=== PATIENT | male | born 1965 | race Caucasian/White ===

== ENCOUNTER 2017-12-09 10:44 | Inpatient (IN) | payer OTHER ==
[2017-12-09 11:29] VITALS: BMI 22.7
--- NOTE | 2017-12-09 12:16 | HP ---
COWS - Scale Resting Pulse: 0= [place] 80 or Below Sweatin= Chills/Flushing Restless Observation: 1= Difficult to Sit Still Pupil Size: 1= Pupils >than Normal Bone or Joint Aches: 2= Severe Diffuse Aches Runny Nose/ Eye Tearin= Nasal Congestion GI Upset > 30mins: 1= Stomach Cramp Tremor Observation: 2= Slight Tremor Visible Yawning Observation: 1= 1-2x During Session Anxiety or Irritability: 2=Irritable/Anxious Goose Flesh Skin: 0=Smooth Skin COWS Score: 12 CIWA Score - CIWA Score Nausea/Vomitin-Mild Nausea/No Vomiting Muscle Tremors: 3 Anxiety: 4-Mod. Anxious/Guarded Agitation: 1-Slight > Activity Paroxysmal Sweats: 2 Orientation: 0-Oriented Tacttile Disturbances: 3-Moderate Itch/Numb/Burn Auditory Disturbances: 0-None Visual Disturbances: 0-None Headache: 0-None Present CIWA-Ar Total Score: 14 Admission [facility] - HPI Chief Complaint: Heroin/BZO withdrawal symptoms. Allergies/Adverse Reactions: Allergies Allergy/AdvReac Type Severity Reaction Status Date / Time No Known Allergies Allergy Verified 12/09/17 11:52 History of Present Illness: Patient presents with Heroin and BZO withdrawal symptoms. Patient injects 10 bags of heroin daily, since age 25. Last time used this morning. Patient also takes 2mg of non-prescribed xanax daily, x few months, last time he took medication was today. Patient denies hx of overdose, seizures and blackouts. This is patients first attempt at detox here at [facility]. Previous detox years ago. Longest of period of sobriety one year. PMH includes HIV+, depression and anxiety. Denies SI/HI and suicide attempts. Exam Limitations: No Limitations - Ebola screening Have you traveled outside of the country in the last 21 days: No Have you had contact with anyone from an Ebola affected area: No Have you been sick,other than usual withdrawal symptoms: No Do you have a fever: No - Review of Systems Constitutional: Chills, Night Sweats, Changes in sleep, Unexplained wgt Loss EENT: reports: Nose Congestion Respiratory: reports: No Symptoms reported Cardiac: reports: No Symptoms Reported GI: reports: Nausea, Poor Appetite, Poor Fluid Intake, Abdominal cramping : reports: No Symptoms Reported Musculoskeletal: reports: Back Pain, Muscle Pain Integumentary: reports: Sweating Neuro: reports: Numbness, Tingling, Tremors Endocrine: reports: Unexplained Weight Loss Hematology: reports: No Symptoms Reported Psychiatric: reports: Orientated x3, Anxious, Depressed Patient History - Patient Medical History Hx Anemia: No Hx Asthma: No Hx Chronic Obstructive Pulmonary Disease (COPD): No Hx Cancer: No Hx Cardiac Disorders: No Hx Congestive Heart Failure: No Hx Hypertension: No Hx Hypercholesterolemia: No Hx Pacemaker: No HX Cerebrovascular Accident: No Hx Seizures: No Hx Dementia: No Hx Diabetes: No Hx Gastrointestinal Disorders: No Hx Liver Disease: No Hx Genitourinary Disorders: No Hx Sexually Transmitted Disorders: No Hx Renal Disease (ESRD): No Hx Thyroid Disease: No Hx Human Immunodeficiency Virus (HIV): Yes (diagnosed in 1981, compliant with all meds) Hx Hepatitis C: No Hx Depression: Yes Hx Suicide Attempt: No Hx Bipolar Disorder: No Hx Schizophrenia: No - Patient Surgical History Past Surgical History: Yes Hx Neurologic Surgery: No Hx Cataract Extraction: No Hx Cardiac Surgery: No Hx Lung Surgery: No Hx Breast Surgery: No Hx Breast Biopsy: No Hx Abdominal Surgery: No Hx Appendectomy: No Hx Cholecystectomy: No Hx Genitourinary Surgery: No Hx Orthopedic Surgery: Yes (torn meniscus, left knee) Anesthesia Reaction: No - PPD History Previous Implant?: Yes Documented Results: Negative w/o proof Implanted On Prior [facility] Admission?: No PPD to be Administered?: Yes - Smoking Cessation Smoking history: Current every day smoker Have you smoked in the past 12 months: Yes Aproximately how many cigarettes per day: 10 Hx Chewing Tobacco Use: No Initiated information on smoking cessation: Yes 'Breaking Loose' booklet given: 12/09/17 - Substance & Tx. History Hx Alcohol Use: No Hx Substance Use: Yes Substance Use Type: Cocaine, Heroin, Marijuana, Tranquilizers Hx Substance Use Treatment: Yes - Substances Abused Heroin Route: Injection Frequency: Daily Amount used: 10-12 bags Age of first use: 25 Date of Last Use: 12/09/17 Crack Route: Smoking Frequency: 3-6 times per week Amount used: $100 Age of first use: 23 Date of Last Use: 12/08/17 Xanax Route: Oral Frequency: Daily Amount used: 2 mg. Age of first use: 52 Date of Last Use: 12/08/17 Marijuana Frequency: 3-6 times per week Amount used: $20 Age of first use: 7 Date of Last Use: 12/08/17 Family Disease History - Family Disease History Family Disease History: Other: Mother (cirrhosis of liver, ) Admission Physical Exam [facility] - Vital Signs Vital Signs: Vital Signs - 24 hr 12/09/17 11:22 Temperature 98.5 F Pulse Rate 62 Respiratory 17 Rate Blood Pressure 123/73 - Physical General Appearance: Yes: No Apparent Distress, Appropriately Dressed, Thin, Sweating, Anxious HEENTM: Yes: EOMI, Hearing grossly Normal, Normocephalic, Normal Voice, BRANDY, Pharynx Normal, Tm's normal, Nasal Congestion Respiratory: Yes: Chest Non-Tender, Lungs Clear, Normal Breath Sounds, No Respiratory Distress, No Accessory Muscle Use Neck: Yes: No masses,lesions,Nodules, Supple Breast: Yes: Breast Exam Deferred Cardiology: Yes: Regular Rhythm, Regular Rate, S1, S2 Abdominal: Yes: Normal Bowel Sounds, Non Tender, Soft Genitourinary: Yes: Within Normal Limits Back: Yes: Normal Inspection, Muscle Spasm Musculoskeletal: Yes: full range of Motion, Gait Steady, Back pain, Muscle Pain Extremities: Yes: Normal Inspection, Normal Range of Motion, Non-Tender, Tremors Neurological: Yes: hand etcher helper II-XII NML intact, Fully Oriented, Alert, Motor Strength 5/5, Normal Response, Depressed Affect Integumentary: Yes: Normal Color, Warm, Moist, Track [place] Lymphatic: Yes: Within Normal Limits - Diagnostic (1) Opioid dependence with withdrawal Current Visit: Yes Status: Acute (2) Depressed affect Current Visit: Yes Status: Suspected (3) HIV positive Current Visit: Yes Status: Acute (4) Sedative hypnotic or anxiolytic dependence Current Visit: Yes Status: Acute Cleared for Admission [facility] - Detox or Rehab [facility] Level of Care: Medically Managed Detox Regimen/Protocol: Methadone/Valium [facility] Breath Alcohol Content Breath Alcohol Content: 0 Urine Drug Screen - Results Drug Screen Negative: No Urine Drug Screen Results: THC-Marijuana, DONNIE-Cocaine, OPI-Opiates, BZO- Benzodiazepines, OXY-Oxycodone, FEN-Fentanyl
[2017-12-09] MEDS ORDERED: NICOTINE POLACRILEX 2 MG GUM BUC PRN (12:28)
[2017-12-09] MEDS ORDERED: LOPERAMIDE HCL 2 MG CAPSULE PO PRN (12:28)
[2017-12-09] MEDS ORDERED: MAGNESIUM CITRATE 300 ML BOTTLE PO PRN (12:28)
[2017-12-09] MEDS ORDERED: MENTHOL/PHENOL 1 EACH UD MM PRN (12:28)
[2017-12-09] MEDS ORDERED: P-EPHED 60MG/TRIPROLIDI 2.5MG TABLET PO PRN (12:28)
[2017-12-09] MEDS ORDERED: MAGNESIUM HYDROX 2400MG/30ML ORAL SUSPENSION 30 ML CUP PO PRN (12:28)
[2017-12-09] MEDS ORDERED: IBUPROFEN 400 MG TABLET (FP) PO PRN (12:28)
[2017-12-09] MEDS ORDERED: guaiFENesin/D-METHORPHAN HB 10 ML UNIT-DOSE CUPS PO PRN (12:28)
[2017-12-09] MEDS ORDERED: hydrOXYzine PAMOATE 25 MG CAPSULE (FP) PO PRN (12:28)
[2017-12-09] MEDS ORDERED: MAG HYDROX/AL HYDROX/SIMETH 30 ML UNIT-DOSE CUP PO PRN (12:28)
[2017-12-09] MEDS ORDERED: ACETAMINOPHEN 325 MG TABLET (FP) PO PRN (12:28)
[2017-12-09] MEDS ORDERED: diazePAM 5 MG TABLET PO PRN (12:32)
[2017-12-09 14:50] LABS: HEMATOCRIT 44.2 % (35.4-49); HEMOGLOBIN 14.8 GM/dL (11.7-16.9); MCH 29.2 pg (25.7-33.7); MCHC 33.4 g/dl (32.0-35.9); MEAN CELL VOLUME 87.4 fl (80-96); MEAN PLT VOLUME 8.6 fl (7.5-11.1); PLATELET COUNT 220 K/MM3 (134-434); RBC 5.06 M/mm3 (4.00-5.60); RDW 14.7 % (11.9-15.9); WHITE BLOOD COUNT 7.9 K/mm3 (4.0-10.0)
[2017-12-09 14:54] LABS: ALBUMIN 3.5 g/dl (3.4-5.0); ALK PHOS 95 U/L (45-117); ANION GAP 3 MMOL/L (8-16); BILIRUBIN,TOTAL 0.3 mg/dL (0.2-1); BLOOD UREA NITROGEN 10 mg/dL (7-18); CHLORIDE 105 mmol/L (98-107); CO2 28 mmol/L (21-32); CREATININE 1.1 mg/dL (0.55-1.3); GLUCOSE,RANDOM 84 mg/dL (74-106); POTASSIUM 4.3 mmol/L (3.5-5.1); SGOT/AST 40 U/L (15-37); SGPT/ALT 30 U/L (13-61); SODIUM 136 mmol/L (136-145); TOT PROT 8.1 g/dl (6.4-8.2)
[2017-12-09] MEDS ORDERED: METHADONE HCL 10 MG TABLET (FOR DETOX USE ONLY) PO ONE ×2 (15:15→23:00)
[2017-12-09] MEDS: diazePAM 5 MG TABLET PO SCH ×2 (15:19→22:17)
[2017-12-09 17:18] LABS: URINE APPEARANCE CLEAR; URINE BILIRUBIN NEGATIVE (<2.0 mg/dL); URINE COLOR LTYELLOW; URINE GLUCOSE (UA) NEGATIVE (NEGATIVE); URINE KETONE NEGATIVE (NEGATIVE); URINE LEUK ESTERASE NEGATIVE (NEGATIVE); URINE NITRITE NEGATIVE (NEGATIVE); URINE PROTEIN NEGATIVE (NEGATIVE); URINE UROBILINOGEN NEGATIVE mg/dL (0.2-1.0)
[2017-12-09] MEDS: THIAMINE HCL 100 MG TABLET (FP) PO SCH (22:17)
[2017-12-09] MEDS: MELATONIN 5 MG TABLETS PO PRN (22:18)
[2017-12-10] MEDS: diazePAM 5 MG TABLET PO SCH ×3 (06:54→22:07)
[2017-12-10] MEDS ORDERED: EMTRICITABINE 200MG/TENOFOVIR 300MG PO SCH (08:00)
[2017-12-10] MEDS ORDERED: RITONAVIR 100 MG TABLET PO SCH (08:00)
[2017-12-10] MEDS ORDERED: DARUNAVIR ETHANOLATE 800 MG TAB PO SCH (08:00)
[2017-12-10] MEDS ORDERED: METHADONE HCL 10 MG TABLET (FOR DETOX USE ONLY) PO SCH (10:00)
[2017-12-10] MEDS: PRENATAL VITAMINS W/ FOLIC ACID TABLET (FP) PO SCH (10:58)
[2017-12-10] MEDS: NICOTINE 21 MG/24 HOURS TOPICAL PATCH TD SCH (10:58)
--- NOTE | 2017-12-10 11:29 | CONSULT ---
[facility] Psychiatric Consult - Data Date of interview: 12/10/17 Admission source: [facility] Identifying data: Patient is a 52 year old male, , without children, unemployed, domiciled, and is supported by [facility]. This is patient's first admission to detox at [facility]. Patient admitted to for cocaine, opiate, and benzodiazepine dependence. Substance Abuse History: Smoking Cessation. Smoking history: Current every day smoker. Have you smoked in the past 12 months: Yes. Aproximately how many cigarettes per day: 10. Hx Chewing Tobacco Use: No. Initiated information on smoking cessation: Yes. 'Breaking Loose' booklet given: 12/09/17. - Substance & Tx. History. Hx Alcohol Use: No. Hx Substance Use: Yes. Substance Use Type : Cocaine, Heroin, Marijuana, Tranquilizers. Hx Substance Use Treatment: Yes. - Substances Abused. Heroin. Route: Injection. Frequency: Daily. Amount used: 10-12 bags. Age of first use: 25. Date of Last Use: 12/09/17. Crack. Route: Smoking. Frequency: 3-6 times per week. Amount used: $100. Age of first use: 23. Date of Last Use: 12/08/17. Xanax. Route: Oral. Frequency: Daily. Amount used: 2 mg. Age of first use: 52. Date of Last Use: 12/08/17. Marijuana. Frequency: 3-6 times per week. Amount used: $20. Age of first use: 7. Date of Last Use: 12/08/17 Medical History: torn meniscus, left knee, HIV Psychiatric History: Patient reports two psychiatric hospitalizations for depression which occured over ten years ago at [place] and another facility in [facility]. Patient denies h/o outpatient psychiatric care. He currently see's a therapist at [facility]. He is not prescribed psychotrophic medications. Patient denies h/o suicide attempt. Physical/Sexual Abuse/Trauma History: denies. Mental Status Exam - Mental Status Exam Alert and Oriented to: Time, Place, Person Cognitive Function: Good Patient Appearance: Unkempt Mood: Withdrawn Affect: Mood Congruent Patient Behavior: Fatigued, Cooperative Speech Pattern: Appropriate Voice Loudness: Moderately Soft/Quiet Thought Process: Intact, Goal Oriented Thought Disorder: Not Present Hallucinations: Denies Suicidal Ideation: Denies Homicidal Ideation: Denies Insight/Judgement: Poor Sleep: Fair Appetite: Fair Muscle strength/Tone: Normal Gait/Station: Other (Did not observe patient's gait.) Psychiatric Findings - Problem List ([place] 1, 2,3) (1) Substance induced mood disorder Current Visit: Yes Status: Acute (2) Opioid dependence with withdrawal Current Visit: Yes Status: Acute (3) Sedative hypnotic or anxiolytic dependence Current Visit: Yes Status: Acute - Initial Treatment Plan Initial Treatment Plan: Psychoeducation provided. Detoxification in progress. Observation.
--- NOTE | 2017-12-10 12:13 | EKG ---
Test Reason : Blood Pressure : / mmHG Vent. Rate : 059 BPM Atrial Rate : 059 BPM P-R Int : 132 ms QRS Dur : 110 ms QT Int : 414 ms P-R-T Axes : 049 010 045 degrees QTc Int : 409 ms SINUS BRADYCARDIA OTHERWISE NORMAL ECG NO PREVIOUS ECGS AVAILABLE Confirmed by STANFORD GARCIA MD ([id number]) on 12/10/2017 12:13:27 PM Referred By: Confirmed By:STANFORD GARCIA MD
--- NOTE | 2017-12-10 13:18 | PN ---
[facility] CIWA - CIWA Score Nausea/Vomitin Muscle Tremors: 4-Moderate,w/Arms Extend Anxiety: 4-Mod. Anxious/Guarded Agitation: 4-Moderately Restless Paroxysmal Sweats: 3 Orientation: 0-Oriented Tacttile Disturbances: 0-None Auditory Disturbances: 0-None Visual Disturbances: 0-None Headache: 0-None Present CIWA-Ar Total Score: 17 [facility] COWS - Scale Resting Pulse: 1= [place] 81-100 Sweatin= Chills/Flushing Restless Observation: 3= Extraneous Movement Pupil Size: 0= Normal to Room Light Bone or Joint Aches: 2= Severe Diffuse Aches Runny Nose/ Eye Tearin= Runny Nose/Eyes GI Upset > 30mins: 2= Nausea/Diarrhea Tremor Observation of Outstretched Hands: 2= Slight Tremor Visible Yawning Observation: 0= None Anxiety or Irritability: 2=Irritable/Anxious Goose Flesh Skin: 0=Smooth Skin COWS Score: 15 S Progress Note (SOAP) Subjective: Body ache, headache, diarrhea, agitated Objective: 12/10/17 13:27 Last Vital Signs Temp Pulse Resp BP Pulse Ox 98.3 F 100 H 16 121/83 12/10/17 13:07 12/10/17 13:07 12/10/17 13:07 12/10/17 13:07 Laboratory Tests 12/09/17 12/09/17 12/09/17 13:10 13:10 13:10 WBC 7.9 RBC 5.06 Hgb 14.8 Hct 44.2 MCV 87.4 MCH 29.2 MCHC 33.4 RDW 14.7 Plt Count 220 MPV 8.6 Sodium 136 Potassium 4.3 Chloride 105 Carbon Dioxide 28 Anion Gap 3 L BUN 10 Creatinine 1.1 Creat Clearance w eGFR > 60 Random Glucose 84 Calcium 9.0 Total Bilirubin 0.3 AST 40 H ALT 30 Alkaline Phosphatase 95 Total Protein 8.1 Albumin 3.5 Urine Color Urine Appearance Urine pH Ur Specific [place] Urine Protein Urine Glucose (UA) Urine Ketones Urine Blood Urine Nitrite Urine Bilirubin Urine Urobilinogen Ur Leukocyte Esterase RPR Titer Nonreactive 12/09/17 15:33 WBC RBC Hgb Hct MCV MCH MCHC RDW Plt Count MPV Sodium Potassium Chloride Carbon Dioxide Anion Gap BUN Creatinine Creat Clearance w eGFR Random Glucose Calcium Total Bilirubin AST ALT Alkaline Phosphatase Total Protein Albumin Urine Color Ltyellow Urine Appearance Clear Urine pH 6.0 Ur Specific [place] 1.013 Urine Protein Negative Urine Glucose (UA) Negative Urine Ketones Negative Urine Blood Negative Urine Nitrite Negative Urine Bilirubin Negative Urine Urobilinogen Negative Ur Leukocyte Esterase Negative RPR Titer Labs reviewed Assessment: 12/10/17 13:29 Withdrawal sxs Plan: Continue detox Encouraged PO water intake
[2017-12-10] MEDS: THIAMINE HCL 100 MG TABLET (FP) PO SCH (22:07)
[2017-12-10] MEDS: MELATONIN 5 MG TABLETS PO PRN (22:08)
[2017-12-11] MEDS: DARUNAVIR ETHANOLATE 800 MG TAB PO SCH (09:46)
[2017-12-11] MEDS: RITONAVIR 100 MG TABLET PO SCH (09:47)
[2017-12-11] MEDS: diazePAM 5 MG TABLET PO SCH ×2 (09:47→22:05)
[2017-12-11] MEDS: METHADONE HCL 5 MG TABLET (FOR DETOX USE ONLY) PO SCH (09:47)
[2017-12-11] MEDS: PRENATAL VITAMINS W/ FOLIC ACID TABLET (FP) PO SCH (09:47)
[2017-12-11] MEDS: EMTRICITABINE 200MG/TENOFOVIR 300MG PO SCH (09:47)
[2017-12-11] MEDS: NICOTINE 21 MG/24 HOURS TOPICAL PATCH TD SCH (09:48)
--- NOTE | 2017-12-11 14:27 | PN ---
[facility] CIWA - CIWA Score Nausea/Vomitin-Mild Nausea/No Vomiting Muscle Tremors: 3 Anxiety: 3 Agitation: 3 Paroxysmal Sweats: 3 Orientation: 0-Oriented Tacttile Disturbances: 0-None Auditory Disturbances: 0-None Visual Disturbances: 0-None Headache: 1-Very Mild CIWA-Ar Total Score: 14 BHS COWS - Scale Resting Pulse: 0= [place] 80 or Below Sweatin= Chills/Flushing Restless Observation: 1= Difficult to Sit Still Pupil Size: 0= Normal to Room Light Bone or Joint Aches: 2= Severe Diffuse Aches Runny Nose/ Eye Tearin= Runny Nose/Eyes GI Upset > 30mins: 2= Nausea/Diarrhea Tremor Observation of Outstretched Hands: 2= Slight Tremor Visible Yawning Observation: 1= 1-2x During Session Anxiety or Irritability: 2=Irritable/Anxious Goose Flesh Skin: 0=Smooth Skin COWS Score: 13 S Progress Note (SOAP) Subjective: Body ache, diarrhea, chills, interrupted sleep Objective: 12/11/17 14:26 Last Vital Signs Temp Pulse Resp BP Pulse Ox 97.9 F 70 16 129/88 12/11/17 09:55 12/11/17 09:55 12/11/17 09:55 12/11/17 09:55 Laboratory Tests 12/09/17 12/09/17 12/09/17 13:10 13:10 13:10 WBC 7.9 RBC 5.06 Hgb 14.8 Hct 44.2 MCV 87.4 MCH 29.2 MCHC 33.4 RDW 14.7 Plt Count 220 MPV 8.6 Sodium 136 Potassium 4.3 Chloride 105 Carbon Dioxide 28 Anion Gap 3 L BUN 10 Creatinine 1.1 Creat Clearance w eGFR > 60 Random Glucose 84 Calcium 9.0 Total Bilirubin 0.3 AST 40 H ALT 30 Alkaline Phosphatase 95 Total Protein 8.1 Albumin 3.5 Urine Color Urine Appearance Urine pH Ur Specific [place] Urine Protein Urine Glucose (UA) Urine Ketones Urine Blood Urine Nitrite Urine Bilirubin Urine Urobilinogen Ur Leukocyte Esterase RPR Titer Nonreactive 12/09/17 15:33 WBC RBC Hgb Hct MCV MCH MCHC RDW Plt Count MPV Sodium Potassium Chloride Carbon Dioxide Anion Gap BUN Creatinine Creat Clearance w eGFR Random Glucose Calcium Total Bilirubin AST ALT Alkaline Phosphatase Total Protein Albumin Urine Color Ltyellow Urine Appearance Clear Urine pH 6.0 Ur Specific [place] 1.013 Urine Protein Negative Urine Glucose (UA) Negative Urine Ketones Negative Urine Blood Negative Urine Nitrite Negative Urine Bilirubin Negative Urine Urobilinogen Negative Ur Leukocyte Esterase Negative RPR Titer Labs reviewed Assessment: 12/11/17 14:27 Withdrawal sxs Plan: Continue detox
[2017-12-11] MEDS: THIAMINE HCL 100 MG TABLET (FP) PO SCH (22:05)
[2017-12-11] MEDS: MELATONIN 5 MG TABLETS PO PRN (22:05)
[2017-12-12] MEDS: diazePAM 5 MG TABLET PO SCH (10:32)
[2017-12-12] MEDS: METHADONE HCL 5 MG TABLET (FOR DETOX USE ONLY) PO SCH (10:32)
[2017-12-12] MEDS: PRENATAL VITAMINS W/ FOLIC ACID TABLET (FP) PO SCH (10:32)
[2017-12-12] MEDS: DARUNAVIR ETHANOLATE 800 MG TAB PO SCH (10:33)
[2017-12-12] MEDS: RITONAVIR 100 MG TABLET PO SCH (10:33)
[2017-12-12] MEDS: EMTRICITABINE 200MG/TENOFOVIR 300MG PO SCH (10:33)
[2017-12-12] MEDS: NICOTINE 21 MG/24 HOURS TOPICAL PATCH TD SCH (10:34)
[2017-12-12 15:23] VITALS: BP 105/80; PULSE 72; TEMP 98.9
--- NOTE | 2017-12-12 15:52 | PN ---
[facility] Progress Note (SOAP) Subjective: alert,irritable,anxious,interrupted sleep,tremor,pain n the body and back Objective: 12/12/17 15:52 Vital Signs Temperature 98.9 F 12/12/17 15:22 Pulse Rate 72 12/12/17 15:22 Respiratory Rate 18 12/12/17 15:22 Blood Pressure 105/80 12/12/17 15:22 O2 Sat by Pulse Oximetry (%) Assessment: 12/12/17 15:52 withdrawal symptom Plan: continue detox
--- NOTE | 2017-12-12 15:59 | DS ---
[facility] Detox Discharge Summary Admission Date: 12/09/17 Discharge Date: 12/12/17 - History Present History: Opioid Dependence, Sedative Dependence Additional Comments: patient did not want to compete treatment,stated he did not like the place,seen by counselor, all attempts to convince patient to stay with no avail,signed release ama,risks of withdrawal and relapse explained, advise to go to re if medicl emrgency and follow up with his own medical provider for medical problem Pertinent Past History: hiv depression - Physical Exam Results Vital Signs: Vital Signs Temperature 98.9 F 12/12/17 15:22 Pulse Rate 72 12/12/17 15:22 Respiratory Rate 18 12/12/17 15:22 Blood Pressure 105/80 12/12/17 15:22 O2 Sat by Pulse Oximetry (%) Pertinent Admission Physical Exam Findings: withdrawal signs and symptom Laboratory Last Values WBC 7.9 K/mm3 (4.0-10.0) 12/09/17 13:10 RBC 5.06 M/mm3 (4.00-5.60) 12/09/17 13:10 Hgb 14.8 GM/dL (11.7-16.9) 12/09/17 13:10 Hct 44.2 % (35.4-49) 12/09/17 13:10 MCV 87.4 fl (80-96) 12/09/17 13:10 MCH 29.2 pg (25.7-33.7) 12/09/17 13:10 MCHC 33.4 g/dl (32.0-35.9) 12/09/17 13:10 RDW 14.7 % (11.9-15.9) 12/09/17 13:10 Plt Count 220 K/MM3 (134-434) 12/09/17 13:10 MPV 8.6 fl (7.5-11.1) 12/09/17 13:10 Sodium 136 mmol/L (136-145) 12/09/17 13:10 Potassium 4.3 mmol/L (3.5-5.1) 12/09/17 13:10 Chloride 105 mmol/L (98-107) 12/09/17 13:10 Carbon Dioxide 28 mmol/L (21-32) 12/09/17 13:10 Anion Gap 3 MMOL/L (8-16) L 12/09/17 13:10 BUN 10 mg/dL (7-18) 12/09/17 13:10 Creatinine 1.1 mg/dL (0.55-1.3) 12/09/17 13:10 Creat Clearance w eGFR > 60 (>60) 12/09/17 13:10 Random Glucose 84 mg/dL (74-106) 12/09/17 13:10 Calcium 9.0 mg/dL (8.5-10.1) 12/09/17 13:10 Total Bilirubin 0.3 mg/dL (0.2-1) 12/09/17 13:10 AST 40 U/L (15-37) H 12/09/17 13:10 ALT 30 U/L (13-61) 12/09/17 13:10 Alkaline Phosphatase 95 U/L (45-117) 12/09/17 13:10 Total Protein 8.1 g/dl (6.4-8.2) 12/09/17 13:10 Albumin 3.5 g/dl (3.4-5.0) 12/09/17 13:10 Urine Color Ltyellow 12/09/17 15:33 Urine Appearance Clear 12/09/17 15:33 Urine pH 6.0 (5.0-8.0) 12/09/17 15:33 Ur Specific [place] 1.013 (1.010-1.035) 12/09/17 15:33 Urine Protein Negative (NEGATIVE) 12/09/17 15:33 Urine Glucose (UA) Negative (NEGATIVE) 12/09/17 15:33 Urine Ketones Negative (NEGATIVE) 12/09/17 15:33 Urine Blood Negative (NEGATIVE) 12/09/17 15:33 Urine Nitrite Negative (NEGATIVE) 12/09/17 15:33 Urine Bilirubin Negative (<2.0 mg/dL) 12/09/17 15:33 Urine Urobilinogen Negative mg/dL (0.2-1.0) 12/09/17 15:33 Ur Leukocyte Esterase Negative (NEGATIVE) 12/09/17 15:33 RPR Titer Nonreactive (NONREACTIVE) 12/09/17 13:10 - Medication Discharge Medications: Ambulatory Orders Darunavir Ethanolate [Prezista -] 800 mg PO DAILY 12/09/17 Emtricitabine/Tenofovir (Tdf) [Truvada 200 mg-300 mg Tablet] 1 each PO DAILY 12/17 Ritonavir [Norvir -] 100 mg PO DAILY 12/09/17 - Diagnosis (1) Opioid dependence with withdrawal Current Visit: Yes Status: Acute (2) Sedative hypnotic or anxiolytic dependence Current Visit: Yes Status: Acute (3) Substance induced mood disorder Current Visit: Yes Status: Acute (4) HIV positive Current Visit: Yes Status: Chronic (5) Nicotine dependence Current Visit: Yes Status: Chronic - AMA Did Patient Leave Against Medical Advice: Yes
[2017-12-13] MEDS ORDERED: diazePAM 5 MG TABLET PO SCH (10:00)
[2017-12-13] MEDS ORDERED: METHADONE HCL 10 MG TABLET (FOR DETOX USE ONLY) PO SCH (10:00)
[2017-12-14] MEDS ORDERED: METHADONE HCL 5 MG TABLET (FOR DETOX USE ONLY) PO SCH (06:00)
== END 2017-12-12 16:06 | disposition left against medical advice (07) | DRG 770 ==
LOC: YASAS 10:44 → Y3N 14:11
PROC: HZ2ZZZZ Detoxification Services for Substance Abuse Treatment (ICD-10-PCS; principal; 2017-12-09)
DX: F10.230 Alcohol dependence with withdrawal, uncomplicated (principal); F13.20 Sedative, hypnotic or anxiolytic dependence, uncomplicated; F17.210 Nicotine dependence, cigarettes, uncomplicated; F19.24 Other psychoactive substance dependence with psychoactive substance-induced mood disorder; F32.9 Major depressive disorder, single episode, unspecified; Z21 Asymptomatic human immunodeficiency virus [HIV] infection status; R45.89 Other symptoms and signs involving emotional state
CPT/HCPCS: 36415; 80053; 81003; 85027; 86593; 93005; 93010

== ENCOUNTER 2019-02-09 14:46 | Inpatient (IN) | payer OTHER ==
[2019-02-09 16:19] VITALS: BMI 23.0
--- NOTE | 2019-02-09 17:17 | HP ---
COWS - Scale Resting Pulse: 0= MD 80 or Below Sweatin= Chills/Flushing Restless Observation: 1= Difficult to Sit Still Pupil Size: 1= Pupils >than Normal Bone or Joint Aches: 2= Severe Diffuse Aches Runny Nose/ Eye Tearin= Runny Nose/Eyes GI Upset > 30mins: 3= Vomiting/Diarrhea Tremor Observation: 2= Slight Tremor Visible Yawning Observation: 1= 1-2x During Session Anxiety or Irritability: 2=Irritable/Anxious Goose Flesh Skin: 0=Smooth Skin COWS Score: 15 CIWA Score - Admission Criteria OASAS Guidelines: Admission for Medically Managed Detox: Requires at least one of the followin. CIWA greater than 12 2. Seizures within the past 24 hours 3. Delirium tremens within the past 24 hours 4. Hallucinations within the past 24 hours 5. Acute intervention needed for co occurring medical disorder 6. Acute intervention needed for co occurring psychiatric disorder 7. Severe withdrawal that cannot be handled at a lower level of care (continued vomiting, continued diarrhea, abnormal vital signs) requiring intravenous medication and/or fluids 8. Admitting History and Physical - Admission Chief Complaint: Heroin detox History of Present Illness: Pt is a 54 yo M with PMHx of HIV+, PTSD, depression and anxiety, (not on meds), presenting for heroin detox, smokes crack, THC. . Last here 12/17. Hoping for rehab after detox. Thinks he is getting older and they don't sell true drugs anymore MOP- utox Heroin Pt injects heroin 10 -15 bags of heroin daily Last use this 8am since age early 50s Never overdosed, has narcan and trained Does not share needles, does not reuse Never had an abscess HIV+ Mar 26, 1981 ( HIV meds- took today with him) Neg for hep C- Healthy Works- this year 90 days longest sobriety-Support network was Pt denies ETOH use as mother from cirrhosis of liver Donnie- utox Smokes crack About 50 dollars worth about 2-3 times a week Started use Early 48years Fen- utox THinks drugs a re laced Xanax Occassional depending on when he can get it Cannot remember last use THC- utox Once or twice a week about 10 dollars worth Started about 10 years old Sober for 5 years from marijuana in 1970s utox- THC, Donnie, Fen, MOP Social Hx No problems with the law Never worked No kids Lives alone, studio apartment EKG 11/2017- QTC 409 Methadone severe detox, to cont HAART, may benefit from ibuprofen for L knee swelling History Source: Patient, Medical Record Limitations to Obtaining History: No Limitations - Past Medical History Infectious Disease: Yes: HIV Musculoskeletal: Yes: Osteoarthritis (R Knee arthritis) - Smoking History Smoking history: Current every day smoker Have you smoked in the past 12 months: Yes Aproximately how many cigarettes per day: 5 - Alcohol/Substance Use Hx Alcohol Use: No History of Substance Use: reports: Cocaine, Heroin, Tranquilizers - Social History Usual Living Arrangement: Yes: Alone Do you think of yourself as: Bisexual ADL: Independent History of Recent Travel: No Admission [facility] Allergies/Adverse Reactions: Allergies Allergy/AdvReac Type Severity Reaction Status Date / Time No Known Allergies Allergy Verified 02/09/19 16:12 - Ebola screening Have you traveled outside of the country in the last 21 days: No (N) Have you had contact with anyone from an Ebola affected area: No Do you have a fever: No Patient History - Patient Medical History Hx Anemia: No Hx Asthma: No Hx Chronic Obstructive Pulmonary Disease (COPD): No Hx Cancer: No Hx Cardiac Disorders: No Hx Congestive Heart Failure: No Hx Hypertension: No Hx Hypercholesterolemia: No Hx Pacemaker: No HX Cerebrovascular Accident: No Hx Seizures: No Hx Dementia: No Hx Diabetes: No Hx Gastrointestinal Disorders: No Hx Liver Disease: No Hx Genitourinary Disorders: No Hx Sexually Transmitted Disorders: No Hx Renal Disease (ESRD): No Hx Thyroid Disease: No Hx Human Immunodeficiency Virus (HIV): Yes (diagnosed in 1981, compliant with all meds) Hx Hepatitis C: No Hx Depression: Yes Hx Suicide Attempt: No Hx Bipolar Disorder: No Hx Schizophrenia: No - Patient Surgical History Past Surgical History: Yes Hx Neurologic Surgery: No Hx Cataract Extraction: No Hx Cardiac Surgery: No Hx Lung Surgery: No Hx Breast Surgery: No Hx Breast Biopsy: No Hx Abdominal Surgery: No Hx Appendectomy: No Hx Cholecystectomy: No Hx Genitourinary Surgery: No Hx Section: No Hx Orthopedic Surgery: Yes (torn meniscus, left knee) Anesthesia Reaction: No - PPD History Previous Implant?: Yes Date: 12/11/17 - Smoking Cessation Smoking history: Current every day smoker Have you smoked in the past 12 months: Yes Aproximately how many cigarettes per day: 5 Hx Chewing Tobacco Use: No Initiated information on smoking cessation: Yes 'Breaking Loose' booklet given: 02/09/19 - Substance & Tx. History Hx Alcohol Use: No Hx Substance Use: Yes Substance Use Type: Cocaine, Heroin, Marijuana Hx Substance Use Treatment: Yes - Substances abused Heroin Substance route: Injection Frequency: Daily Amount used: 15 BAGS Age of first use: 48 Date of last use: 02/09/19 Cocaine Substance route: Smoking Frequency: Daily Amount used: $60 Age of first use: 38 Date of last use: 02/09/19 Marijuana/Hashish Substance route: Smoking Frequency: Daily Amount used: $10 Age of first use: 10 Date of last use: 02/02/19 Admission Physical Exam [facility] - Vital Signs Vital Signs: Vital Signs - 24 hr 02/09/19 17:03 Temperature 97.8 F Pulse Rate 79 Respiratory 18 Rate Blood Pressure 129/79 - Physical General Appearance: Yes: Anxious HEENTM: Yes: Within Normal Limits, Other (Edentulous) Respiratory: Yes: Chest Non-Tender, Lungs Clear Neck: Yes: Within Normal Limits Breast: Yes: Breast Exam Deferred Cardiology: Yes: Regular Rhythm, Regular Rate, S1, S2 Abdominal: Yes: Within Normal Limits Genitourinary: Yes: Within Normal Limits Back: Yes: Within Normal Limits Musculoskeletal: Yes: Within Normal Limits Extremities: Yes: Other (Bruise LLE over anna, L knee swelling) Neurological: Yes: Fully Oriented, Alert Integumentary: Yes: Track [place] (B/l UE) - Diagnostic (1) Opioid dependence with withdrawal Current Visit: No Status: Acute Cleared for Admission [facility] - Detox or Rehab [facility] Level of Care: Medically Managed Breathalyzer - Breathalyzer Breathalyzer: 0 Urine Drug Screen - Test Device Lot number: [id number] Expiration date: 09/29/20 - Control Is test valid?: Yes - Results Drug screen NEGATIVE: No Urine drug screen results: THC-Marijuana, DONNIE-Cocaine, FEN-Fentanyl, MOP-Opiates Inpatient Rehab Admission - Rehab Decision to Admit Inpatient rehab admission?: No
[2019-02-09] MEDS ORDERED: METHADONE HCL 10 MG TABLET (FOR DETOX USE ONLY) PO ONE (18:32)
[2019-02-09] MEDS ORDERED: cloNIDine HCL 0.1 MG TABLET PO PRN (18:32)
[2019-02-09] MEDS ORDERED: ACETAMINOPHEN 325 MG TABLET (FP) PO PRN ×2 (18:33)
[2019-02-09] MEDS ORDERED: MENTHOL/PHENOL 1 EACH UD MM PRN (18:33)
[2019-02-09] MEDS ORDERED: MAG HYDROX/AL HYDROX/SIMETH 30 ML UNIT-DOSE CUP PO PRN (18:33)
[2019-02-09] MEDS ORDERED: IBUPROFEN 400 MG TABLET (FP) PO PRN (18:33)
[2019-02-09] MEDS ORDERED: METHOCARBAMOL 500 MG TABLET PO PRN (18:33)
[2019-02-09] MEDS ORDERED: MELATONIN 5 MG TABLETS PO PRN (18:33)
[2019-02-09] MEDS ORDERED: hydrOXYzine PAMOATE 25 MG CAPSULE (FP) PO PRN (18:33)
[2019-02-09] MEDS ORDERED: BISMUTH SUBSALICYLATE 524 MG/30 ML UD PO PRN (18:33)
[2019-02-09] MEDS ORDERED: MAGNESIUM HYDROX 2400MG/30ML ORAL SUSPENSION 30 ML CUP PO PRN (18:33)
[2019-02-09] MEDS ORDERED: MAGNESIUM CITRATE 300 ML BOTTLE PO PRN (18:33)
[2019-02-09] MEDS: THIAMINE HCL 100 MG TABLET (FP) PO SCH (22:15)
[2019-02-10 09:58] LABS: HEMATOCRIT 35.9 % (35.4-49); MCH 30.8 pg (25.7-33.7); MCHC 33.5 g/dl (32.0-35.9); MEAN CELL VOLUME 92.1 fl (80-96); MEAN PLT VOLUME 8.2 fl (7.5-11.1); PLATELET COUNT 179 K/MM3 (134-434); RDW 15.2 % (11.9-15.9); WHITE BLOOD COUNT 3.9 K/mm3 (4.0-10.0)
[2019-02-10] MEDS ORDERED: METHADONE (DETOX) 20 MG, METHADONE (DETOX) 5 MG PO ONE (10:00)
[2019-02-10] MEDS ORDERED: METHADONE HCL 5 MG TABLET (FOR DETOX USE ONLY) ONE (10:14)
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
[2019-02-10] MEDS ORDERED: METHADONE HCL 10 MG TABLET (FOR DETOX USE ONLY) ONE (10:15)
[2019-02-10 10:18] LABS: ALBUMIN 2.8 g/dl (3.4-5.0); BILIRUBIN,TOTAL 0.2 mg/dL (0.2-1); CREATININE 0.9 mg/dL (0.55-1.3); POTASSIUM 3.5 mmol/L (3.5-5.1); TOT PROT 6.1 g/dl (6.4-8.2)
[2019-02-10] MEDS: PRENATAL VITAMINS W/ FOLIC ACID TABLET (FP) PO SCH (10:25)
[2019-02-10] MEDS: DARUNAVIR/COB/EMTRI/TENOF (SYMTUZA) TABLET (NF) PO SCH (10:26)
--- NOTE | 2019-02-10 11:37 | PN ---
BHS COWS - Scale Resting Pulse: 0= MO 80 or Below Sweatin= Chills/Flushing Restless Observation: 1= Difficult to Sit Still Pupil Size: 0= Normal to Room Light Bone or Joint Aches: 2= Severe Diffuse Aches Runny Nose/ Eye Tearin= Runny Nose/Eyes GI Upset > 30mins: 0= None Tremor Observation of Outstretched Hands: 1= Tremor [place], Not Seen Yawning Observation: 2= >3x During Session Anxiety or Irritability: 1=Feels Anxious/Irritable Goose Flesh Skin: 0=Smooth Skin COWS Score: 10 BHS Progress Note (SOAP) Subjective: sweats shakes nasal congestions body aches Objective: 02/10/19 14:43 Vital Signs Temperature 97.5 F L 02/10/19 13:17 Pulse Rate 68 02/10/19 13:17 Respiratory Rate 19 02/10/19 13:17 Blood Pressure 113/71 02/10/19 13:17 O2 Sat by Pulse Oximetry (%) Laboratory Tests 02/10/19 02/10/19 02/10/19 08:00 08:00 08:00 WBC 3.9 L RBC 3.90 L Hgb 12.0 Hct 35.9 D MCV 92.1 MCH 30.8 MCHC 33.5 RDW 15.2 Plt Count 179 MPV 8.2 Sodium 139 Potassium 3.5 Chloride 107 Carbon Dioxide 26 Anion Gap 6 L BUN 11.0 Creatinine 0.9 Est GFR (CKD-EPI)AfAm 110.27 Est GFR (CKD-EPI)NonAf 95.14 Random Glucose 87 Calcium 8.0 L Total Bilirubin 0.2 AST 16 ALT 17 Alkaline Phosphatase 85 Total Protein 6.1 L Albumin 2.8 L RPR Titer Nonreactive aaox3 ambulating no acute distress Assessment: 02/10/19 14:43 withdrawals Plan: continue detox increase fluids ocean spray prn
[2019-02-10] MEDS ORDERED: SODIUM CHLORIDE NASAL SPRAY 44 ML BOTTLE NS PRN (14:44)
[2019-02-10] MEDS: THIAMINE HCL 100 MG TABLET (FP) PO SCH (22:07)
[2019-02-10] MEDS: QUEtiapine FUMARATE 100 MG TABLET (FP) PO SCH (22:07)
[2019-02-11] MEDS: DARUNAVIR/COB/EMTRI/TENOF (SYMTUZA) TABLET (NF) PO SCH (07:15)
--- NOTE | 2019-02-11 08:41 | PN ---
Teaching Attending Note Name of Resident: Josefa Stanton ATTENDING PHYSICIAN STATEMENT I saw and evaluated the patient. I reviewed the resident's note and discussed the case with the resident. I agree with the resident's findings and plan as documented. SUBJECTIVE: Agree with subjective resident findings OBJECTIVE: Agree with objective resident findings ASSESSMENT AND PLAN: Agree with admission plans. Dr. Mccoy
[2019-02-11] MEDS ORDERED: METHADONE HCL 10 MG TABLET (FOR DETOX USE ONLY) PO ONE (10:00)
[2019-02-11] MEDS: PRENATAL VITAMINS W/ FOLIC ACID TABLET (FP) PO SCH (10:25)
--- NOTE | 2019-02-11 13:45 | PN ---
BHS COWS - Scale Resting Pulse: 1= ID [id number] Sweatin= Chills/Flushing Restless Observation: 1= Difficult to Sit Still Pupil Size: 0= Normal to Room Light Bone or Joint Aches: 1= Mild Discomfort Runny Nose/ Eye Tearin= Nasal Congestion GI Upset > 30mins: 0= None Tremor Observation of Outstretched Hands: 0= None Yawning Observation: 2= >3x During Session Anxiety or Irritability: 1=Feels Anxious/Irritable Goose Flesh Skin: 0=Smooth Skin COWS Score: 8 BHS Progress Note (SOAP) Subjective: sweats shakes body aches interrupted sleep Objective: 02/11/19 13:44 Vital Signs Temperature 98.2 F 02/11/19 13:17 Pulse Rate 72 02/11/19 13:17 Respiratory Rate 18 02/11/19 13:17 Blood Pressure 107/74 02/11/19 13:17 O2 Sat by Pulse Oximetry (%) Laboratory Tests 02/10/19 02/10/19 02/10/19 08:00 08:00 08:00 WBC 3.9 L RBC 3.90 L Hgb 12.0 Hct 35.9 D MCV 92.1 MCH 30.8 MCHC 33.5 RDW 15.2 Plt Count 179 MPV 8.2 Sodium 139 Potassium 3.5 Chloride 107 Carbon Dioxide 26 Anion Gap 6 L BUN 11.0 Creatinine 0.9 Est GFR (CKD-EPI)AfAm 110.27 Est GFR (CKD-EPI)NonAf 95.14 Random Glucose 87 Calcium 8.0 L Total Bilirubin 0.2 AST 16 ALT 17 Alkaline Phosphatase 85 Total Protein 6.1 L Albumin 2.8 L RPR Titer Nonreactive aaox3 ambulating no acute distress Assessment: 02/11/19 13:44 withdrawal sx Plan: continue detox increase fluids
[2019-02-11] MEDS: QUEtiapine FUMARATE 100 MG TABLET (FP) PO SCH (22:44)
[2019-02-11] MEDS: THIAMINE HCL 100 MG TABLET (FP) PO SCH (22:45)
[2019-02-12] MEDS ORDERED: METHADONE HCL 5 MG TABLET (FOR DETOX USE ONLY) ONE (09:17)
[2019-02-12] MEDS ORDERED: METHADONE HCL 10 MG TABLET (FOR DETOX USE ONLY) ONE (09:17)
[2019-02-12] MEDS ORDERED: METHADONE (DETOX) 10 MG, METHADONE (DETOX) 5 MG PO ONE (10:00)
[2019-02-12] MEDS ORDERED: hydrOXYzine PAMOATE 25 MG CAPSULE (FP) PO PRN (10:08)
[2019-02-12] MEDS ORDERED: cloNIDine HCL 0.1 MG TABLET PO PRN (10:08)
--- NOTE | 2019-02-12 10:08 | PN ---
BHS COWS - Scale Resting Pulse: 1= MO 81-100 Sweatin= Chills/Flushing Restless Observation: 1= Difficult to Sit Still Pupil Size: 1= Pupils >than Normal Bone or Joint Aches: 2= Severe Diffuse Aches Runny Nose/ Eye Tearin= Nasal Congestion GI Upset > 30mins: 1= Stomach Cramp Tremor Observation of Outstretched Hands: 1= Tremor [place], Not Seen Yawning Observation: 0= None Anxiety or Irritability: 1=Feels Anxious/Irritable Goose Flesh Skin: 0=Smooth Skin COWS Score: 10 BHS Progress Note (SOAP) Subjective: Pt states his body still hurts. methadone detox- today at 15mg, feels like he is in withdrawal O: Vital Signs - 24 hr 02/11/19 02/11/19 02/11/19 10:36 13:17 17:07 Temperature 96.8 F L 98.2 F 97.5 F L Pulse Rate 84 72 60 Respiratory 18 18 17 Rate Blood Pressure 117/74 107/74 145/91 02/11/19 02/12/19 02/12/19 22:00 00:30 03:30 Temperature 98.4 F Pulse Rate 68 65 Respiratory 16 18 16 Rate Blood Pressure 116/68 02/12/19 02/12/19 06:00 09:46 Temperature 97.3 F L 98.6 F Pulse Rate 65 77 Respiratory 16 18 Rate Blood Pressure 118/66 114/81 Laboratory Tests 02/10/19 02/10/19 02/10/19 08:00 08:00 08:00 WBC 3.9 L RBC 3.90 L Hgb 12.0 Hct 35.9 D MCV 92.1 MCH 30.8 MCHC 33.5 RDW 15.2 Plt Count 179 MPV 8.2 Sodium 139 Potassium 3.5 Chloride 107 Carbon Dioxide 26 Anion Gap 6 L BUN 11.0 Creatinine 0.9 Est GFR (CKD-EPI)AfAm 110.27 Est GFR (CKD-EPI)NonAf 95.14 Random Glucose 87 Calcium 8.0 L Total Bilirubin 0.2 AST 16 ALT 17 Alkaline Phosphatase 85 Total Protein 6.1 L Albumin 2.8 L RPR Titer Nonreactive a/p: OUD-continue methadone detos, prn clonidine and vistaril for Sx, d/w pt MAT as outpt
[2019-02-12] MEDS: PRENATAL VITAMINS W/ FOLIC ACID TABLET (FP) PO SCH (10:58)
[2019-02-12] MEDS: DARUNAVIR/COB/EMTRI/TENOF (SYMTUZA) TABLET (NF) PO SCH (10:58)
[2019-02-12] MEDS: THIAMINE HCL 100 MG TABLET (FP) PO SCH (22:30)
[2019-02-12] MEDS: QUEtiapine FUMARATE 100 MG TABLET (FP) PO SCH (22:30)
[2019-02-13] MEDS ORDERED: METHADONE HCL 10 MG TABLET (FOR DETOX USE ONLY) PO ONE (10:00)
[2019-02-13] MEDS: PRENATAL VITAMINS W/ FOLIC ACID TABLET (FP) PO SCH (10:36)
[2019-02-13] MEDS: DARUNAVIR/COB/EMTRI/TENOF (SYMTUZA) TABLET (NF) PO SCH (10:36)
--- NOTE | 2019-02-13 18:33 | PN ---
BHS COWS - Scale Resting Pulse: 0= MT 80 or Below Sweatin= Chills/Flushing Restless Observation: 1= Difficult to Sit Still Pupil Size: 0= Normal to Room Light Bone or Joint Aches: 2= Severe Diffuse Aches Runny Nose/ Eye Tearin= None GI Upset > 30mins: 1= Stomach Cramp Tremor Observation of Outstretched Hands: 2= Slight Tremor Visible Yawning Observation: 0= None Anxiety or Irritability: 1=Feels Anxious/Irritable Goose Flesh Skin: 0=Smooth Skin COWS Score: 8 BHS Progress Note (SOAP) Subjective: Sweating, chills, tremor, diarrhea Objective: 02/13/19 18:30 Last Vital Signs Temp Pulse Resp BP Pulse Ox 98.8 F 77 18 115/73 02/13/19 17:52 02/13/19 17:52 02/13/19 17:52 02/13/19 17:52 Laboratory Tests 02/10/19 02/10/19 02/10/19 08:00 08:00 08:00 WBC 3.9 L RBC 3.90 L Hgb 12.0 Hct 35.9 D MCV 92.1 MCH 30.8 MCHC 33.5 RDW 15.2 Plt Count 179 MPV 8.2 Sodium 139 Potassium 3.5 Chloride 107 Carbon Dioxide 26 Anion Gap 6 L BUN 11.0 Creatinine 0.9 Est GFR (CKD-EPI)AfAm 110.27 Est GFR (CKD-EPI)NonAf 95.14 Random Glucose 87 Calcium 8.0 L Total Bilirubin 0.2 AST 16 ALT 17 Alkaline Phosphatase 85 Total Protein 6.1 L Albumin 2.8 L RPR Titer Nonreactive Labs reviewed: albumin and total protein low Assessment: 02/13/19 18:31 Withdrawal sxs Noted with low total protein and hypoalbuminemia Plan: Continue detox Encouraged PO water intake Hold discharge for tomorrow due to increased withdrawal sxs Low total protein and hypoalbuminemia: encouraged diet
[2019-02-13] MEDS: THIAMINE HCL 100 MG TABLET (FP) PO SCH (22:19)
[2019-02-13] MEDS: QUEtiapine FUMARATE 100 MG TABLET (FP) PO SCH (22:19)
[2019-02-14] MEDS ORDERED: METHADONE HCL 5 MG TABLET (FOR DETOX USE ONLY) PO ONE (06:00)
[2019-02-14 10:10] VITALS: BP 117/76; PULSE 104; TEMP 98.8
[2019-02-14] MEDS: DARUNAVIR/COB/EMTRI/TENOF (SYMTUZA) TABLET (NF) PO SCH (10:10)
[2019-02-14] MEDS: PRENATAL VITAMINS W/ FOLIC ACID TABLET (FP) PO SCH (10:10)
--- NOTE | 2019-02-14 10:47 | DS ---
[facility] Detox Discharge Summary Admission Date: 02/09/19 Discharge Date: 02/14/19 - History Present History: Cocaine Dependence, Opioid Dependence, Sedative Dependence - Physical Exam Results Vital Signs: Vital Signs Temperature 98.8 F 02/14/19 10:09 Pulse Rate 104 H 02/14/19 10:09 Respiratory Rate 18 02/14/19 10:09 Blood Pressure 117/76 02/14/19 10:09 O2 Sat by Pulse Oximetry (%) Pertinent Admission Physical Exam Findings: Vital Signs Temperature 98.8 F 02/14/19 10:09 Pulse Rate 104 H 02/14/19 10:09 Respiratory Rate 18 02/14/19 10:09 Blood Pressure 117/76 02/14/19 10:09 O2 Sat by Pulse Oximetry (%) Laboratory Tests 02/10/19 02/10/19 02/10/19 08:00 08:00 08:00 WBC 3.9 L RBC 3.90 L Hgb 12.0 Hct 35.9 D MCV 92.1 MCH 30.8 MCHC 33.5 RDW 15.2 Plt Count 179 MPV 8.2 Sodium 139 Potassium 3.5 Chloride 107 Carbon Dioxide 26 Anion Gap 6 L BUN 11.0 Creatinine 0.9 Est GFR (CKD-EPI)AfAm 110.27 Est GFR (CKD-EPI)NonAf 95.14 Random Glucose 87 Calcium 8.0 L Total Bilirubin 0.2 AST 16 ALT 17 Alkaline Phosphatase 85 Total Protein 6.1 L Albumin 2.8 L RPR Titer Nonreactive aaox3 ambulating no acute distress - Treatment Hospital Course: Detox Protocol Followed, Detoxed Safely, Responded well, Discharged Condition Good, Rehab Referral Accepted Patient has Accepted a Rehab Referral to: pt referred to [facility] - Medication Discharge Medications: Ambulatory Orders Ascorbate Calcium [Vitamin C] 500 mg PO BID 02/09/19 Darunavir/Cob/Emtri/Tenof Alaf [Symtuza [phone] mg Tab] 1 tab PO DAILY Multivitamin [One-Daily Multi-Vitamin] 1 each PO DAILY 02/09/19 - Diagnosis (1) Cocaine dependence Current Visit: Yes Status: Chronic Qualifiers: Substance use status: uncomplicated Qualified Code(s): F14.20 - Cocaine dependence, uncomplicated (2) Opioid dependence with withdrawal Current Visit: Yes Status: Chronic (3) Substance induced mood disorder Current Visit: Yes Status: Acute (4) Substance-induced sleep disorder Current Visit: Yes Status: Acute (5) Nicotine dependence Current Visit: Yes Status: Chronic Qualifiers: Nicotine product type: cigarettes Substance use status: uncomplicated Qualified Code(s): F17.210 - Nicotine dependence, cigarettes, uncomplicated (6) Sedative hypnotic or anxiolytic dependence Current Visit: No Status: Acute (7) Depressed affect Current Visit: No Status: Chronic (8) HIV positive Current Visit: Yes Status: Chronic - AMA Did Patient Leave Against Medical Advice: No
== END 2019-02-14 12:45 | disposition home or self-care (01) | DRG 773 ==
LOC: YASAS 14:46 → Y6N 18:49
PROVIDERS: ADMIT Allergy & Immunology; ATTEND Allergy & Immunology
PROC: HZ2ZZZZ Detoxification Services for Substance Abuse Treatment (ICD-10-PCS; principal; 2019-02-09)
DX: F11.23 Opioid dependence with withdrawal (principal); F13.230 Sedative, hypnotic or anxiolytic dependence with withdrawal, uncomplicated; F14.20 Cocaine dependence, uncomplicated; F17.210 Nicotine dependence, cigarettes, uncomplicated; F19.24 Other psychoactive substance dependence with psychoactive substance-induced mood disorder; F19.282 Other psychoactive substance dependence with psychoactive substance-induced sleep disorder; F32.9 Major depressive disorder, single episode, unspecified; Z21 Asymptomatic human immunodeficiency virus [HIV] infection status; R77.0 Abnormality of albumin; E88.09 Other disorders of plasma-protein metabolism, not elsewhere classified; Z62.810 Personal history of physical and sexual abuse in childhood
CPT/HCPCS: 36415; 80053; 85027; 86593; J0735